=== PATIENT | female | born 1970 | race Caucasian/White ===

== ENCOUNTER 2020-06-30 02:27 | Emergency (ER) | payer BC ==
[~2020-06-30] VITALS: Ht 170.2 cm; Wt 77.3 kg
[2020-06-30] MEDS ORDERED: KETOROLAC 30 MG/ML VIAL. IVP ONE (03:00)
[2020-06-30] MEDS ORDERED: diphenhydrAMINE 50 MG/ML VIAL IVP ONE (03:00)
[2020-06-30] MEDS ORDERED: PROCHLORPERAZINE 10 MG/2 ML VIAL. IV ONE (03:00)
--- NOTE | 2020-06-30 03:29 | PHYS DOC ---
General Adult EDM: Chief Complaint: HEADACHE HPI: HPI: Patient is a 50 year old female with past medical history hypothyroid and migraine headache. Patient states migraine headache started around 2100 hrs. She states pain is in its typical location frontal retro-orbital and in the jaw. Patient states she has associated nausea but has not vomited and photophobia.. Patient states she typically knows when her migraine starts and usually takes Excedrin migraine with relief. Patient is currently on vacation and did not bring any migraine medications with her. Review of Systems: Review of Systems: Review of systems: Constitutional symptoms- No fever, no chills. Eyes- No Discharge, No Visual Loss Respiratory symptoms- No shortness of breath, No wheezing, No Dyspnea on Exe rtion Cardiovascular Systems; No chest pain, No Palpitations, No syncope Gastrointestinal symptoms: NO abdominal pain, Positive nausea, no vomiting or diarrhea. Genitourinary symptoms: No dysuria. Musculoskeletal symptoms: No back pain No extremity pain. NEUROLOGICAL Symptoms: Positive headache, no generalized weakness; No focal Weakness Heart Score: C/O Chest Pain: No Risk Factors: Risk Factors: DM, Current or recent (<one month) smoker, HTN, HLP, family history of CAD, obesity. Risk Scores: Score 0 - 3: 2.5% MACE over next 6 weeks - Discharge Home Score 4 - 6: 20.3% MACE over next 6 weeks - Admit for Clinical Observation Score 7 - 10: 72.7% MACE over next 6 weeks - Early Invasive Strategies Current Medications: Current Medications Medications (Trade) Dose Ordered Sig/Ana Lilia Start Time Stop Time Status Last Admin Dose Admin Diphenhydramine HCl (Benadryl) 50 mg 1X ONCE 06/30/20 03:00 06/30/20 03:02 DC 06/30/20 03:02 50 MG Ketorolac Tromethamine (Toradol 30mg Vial) 30 mg 1X ONCE 06/30/20 03:00 06/30/20 03:02 DC 06/30/20 03:02 30 MG Prochlorperazine Edisylate (Compazine) 10 mg 1X ONCE 06/30/20 03:00 06/30/20 03:02 DC 06/30/20 03:03 10 MG Allergies: Allergies: Allergies Coded Allergies Type Severity Reaction Last Updated Verified No Known Drug Allergies 06/30/20 No Physical Exam: PE: Constitutional: Well developed, well nourished, no acute distress, non-toxic appearance. [] HENT: Normocephalic, atraumatic, bilateral external ears normal, oropharynx moist, no oral exudates, nose normal. [] Eyes: PERRLA, EOMI, conjunctiva normal, no discharge. [] Neck: Normal range of motion, no tenderness, supple, no stridor. [] Cardiovascular:Heart rate regular rhythm, no murmur [] Lungs & Thorax: Bilateral breath sounds clear to auscultation [] Abdomen: Bowel sounds normal, soft, no tenderness, no masses, no pulsatile masses. [] Skin: Warm, dry, no erythema, no rash. [] Back: No tenderness, no CVA tenderness. [] Extremities: No tenderness, no cyanosis, no clubbing, ROM intact, no edema. [] Neurologic: Alert and oriented X 3, normal motor function, normal sensory function, no focal deficits noted. [] Psychologic: Affect normal, judgement normal, mood normal. [] EKG: EKG: [] Radiology/Procedures: Radiology/Procedures: [] Course & Med Decision Making: Course & Med Decision Making Pertinent Labs and Imaging studies reviewed. (See chart for details) [] Treatment included Toradol Benadryl Compazine. Reevaluation at 0415hrs-- headache has completely resolved. Robi Disclaimer: Robi Disclaimer: This electronic medical record was generated, in whole or in part, using a voice recognition dictation system. Departure Departure Impression: Primary Impression: Migraine Disposition: 01 DC HOME SELF CARE/HOMELESS Condition: STABLE Referrals: NO PCP (PCP) Patient Instructions: Migraine Headache DONITA JAMES DO Jun 30, 2020 03:29
[2020-06-30 04:19] VITALS: BP 105/58
== END 2020-06-30 04:20 | disposition home or self-care (01) ==
LOC: ER 02:27
DX: G43.909 Migraine, unspecified, not intractable, without status migrainosus (principal); R11.0 Nausea; E03.9 Hypothyroidism, unspecified
CPT/HCPCS: 96374; 96375; 99284; J0780; J1200; J1885